=== PATIENT | female | born 1950 | race Caucasian/White ===

== ENCOUNTER 2016-11-12 12:00 | Emergency (ER) | payer MEDICARE, OTHER ==
[2016-11-12 12:18] VITALS: BP 120/81; PULSE 73; RESP 16; TEMP 98.2
--- NOTE | 2016-11-12 13:26 | ED ---
Lower Extremity Injury HPI <Felice Salazar - Last Filed: 11/12/16 14:23> - General Source: patient, RN notes reviewed, old records reviewed Mode of arrival: wheelchair Limitations: no limitations <Jamia Diana - Last Filed: 11/12/16 15:45> - General Chief Complaint: Extremity Injury, Lower Stated Complaint: IHS-knee pain Time Seen by Provider: 11/12/16 12:48 - History of Present Illness Initial Comments: Is a 66-year-old female presents emergency to play right knee pain. 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 Patient poor she stepped on her knee incorrectly and felt a popping sensation. Patient reports the pain is mainly over the posterior knee. 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 Patient reports that her was a previous radiologist here and is requesting to have a ultrasound and x-rays. Patient states the pain is worse with full extension. She reports that she is unable to fully extend. She states the pain is mainly over the back of her knee. Patient denies any recent fever or chills, chest pain, shortness of breath, nausea, vomiting or any other symptoms. (Jamia Diana) - Related Data Previous Rx's Medication Instructions Recorded Ibuprofen [Motrin] 600 mg PO Q6HR PRN #20 tab 11/12/16 Allergies Allergy/AdvReac Type Severity Reaction Status Date / Time No Known Allergies Allergy Verified 11/12/16 14:13 Review of Systems ROS Other: All systems not noted in ROS Statement are negative. <MartinFelice - Last Filed: 11/12/16 14:23> ROS Other: All systems not noted in ROS Statement are negative. <Jamia Diana - Last Filed: 11/12/16 15:45> ROS Statement: Those systems with pertinent positive or pertinent negative responses have been documented in the HPI. Past Medical History Past Medical History: No Reported History History of Any Multi-Drug Resistant Organisms: None Reported Past Surgical History: Appendectomy, Tubal Ligation Additional Past Surgical History / Comment(s): COLONOSCOPY Past Anesthesia/Blood Transfusion Reactions: No Reported Reaction Past Psychological History: No Psychological Hx Reported Smoking Status: Never smoker Past Alcohol Use History: Occasional Past Drug Use History: None Reported - Past Family History Mother Family Medical History: Cancer Additional Family Medical History / Comment(s): Breast Cancer <Jamia Diana - Last Filed: 11/12/16 15:45> General Exam <Felice Salazar - Last Filed: 11/12/16 14:23> Limitations: no limitations General appearance: alert, in no apparent distress Head exam: Present: atraumatic, normocephalic, normal inspection Eye exam: Present: normal appearance, PERRL, EOMI. Absent: scleral icterus, conjunctival injection, periorbital swelling ENT exam: Present: normal exam, mucous membranes moist Neck exam: Present: normal inspection. Absent: tenderness, meningismus, lymphadenopathy Respiratory exam: Present: normal lung sounds bilaterally. Absent: respiratory distress, wheezes, rales, rhonchi, stridor Cardiovascular Exam: Present: regular rate, normal rhythm, normal heart sounds. Absent: systolic murmur, diastolic murmur, rubs, gallop, clicks GI/Abdominal exam: Present: soft, normal bowel sounds. Absent: distended, tenderness, guarding, rebound, rigid Extremities exam: Present: normal inspection, full ROM, normal capillary refill. Absent: tenderness, pedal edema, joint swelling, calf tenderness Left Knee exam: Present: normal inspection ( he can feel), tenderness (Patient has pain and tenderness over the knee.). Absent: full ROM, swelling, abrasion, laceration Lower Leg exam: Present: normal inspection, full ROM Ankle exam: Present: normal inspection, full ROM Foot/Toe exam: Present: normal inspection, full ROM Neurovascular tendon exam: Present: no vascular compromise Gait: observed and normal Back exam: Present: normal inspection Neurological exam: Present: alert, oriented X3, CN II-XII intact Skin exam: Present: warm, dry, intact, normal color. Absent: rash <Jamia Diana - Last Filed: 11/12/16 15:45> - General Exam Comments Initial Comments: [place] 66-year-old female. No acute distress. (Jamia Diana) Course <Felice Salazar - Last Filed: 11/12/16 14:23> <Jamia Diana - Last Filed: 11/12/16 15:45> Vital Signs 11/12/16 11/12/16 12:13 14:59 Temperature 98.2 F 98.2 F Pulse Rate 73 73 Respiratory 16 16 Rate Blood Pressure 120/81 120/81 O2 Sat by Pulse 98 98 Oximetry - Reevaluation(s) Reevaluation #1: 11/12/16 14:23 I did personally evaluate the patient did discuss findings with her. The x- rays and the look unremarkable for acute findings. Ultrasound shows evidence of a popliteal cyst patient clinically does have evidence of tenderness palpation of the lateral aspect of the right knee no anterior or medial tenderness. There is some mild posterior and posterior lateral tenderness. No step-off or crepitation. Patient will be discharged with a knee immobilizer instructions to follow-up with Dr. [facility]. (Felice Salazar) Medical Decision Making <Felice Salazar - Last Filed: 11/12/16 14:23> - Radiology Data Radiology results: report reviewed <Jamia Diana - Last Filed: 11/12/16 15:45> - Medical Decision Making Is a 66-year-old female presents emergency to play right knee pain. 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 Patient poor she stepped on her knee incorrectly and felt a popping sensation. Patient reports the pain is mainly over the posterior knee. 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 Patient reports that her was a previous radiologist here and is requesting to have a ultrasound and x-rays. X-rays negative for any acute process. Doppler ultrasound does show evidence of 27 m fluid flush over the posterior consistent with a first popliteal cyst. Patient was attempting to put knee immobilizer but she reports the pain is too severe. Patient states that she prefers a Luis Alfredo wrap. Patient given an Luis Alfredo wrap and advised to take the knee immobilizer home. She was written for prescription for crutches. She will be following up with her orthopedic physician Dr. Dowd who is currently on-call. Patient will be given Motrin for pain. Patient understands treatment plan will comply. Return parameters were discussed. I also discussed this case with Dr. Salazar and he physically examined the patient as well. (Jamia Diana) - Radiology Data Further exam for DVT. Patient complains of pain in the lateral popliteal fossa small fluid collections noted 1.6 x 0.7 x 1.7 cm. Negative for DVT in the right lower extremity periods popliteal cyst is felt present. X-rays reviewed reviewed negative for any acute process (Jamia Diana) Disposition <MartinFelice - Last Filed: 11/12/16 14:23> Time of Disposition: 14:17 <Jamia Diana - Last Filed: 11/12/16 15:45> Clinical Impression: Popliteal cyst, Knee sprain Disposition: HOME SELF-CARE Condition: Good Instructions: Knee Sprain (ED), Bakers Cyst (ED) Additional Instructions: Remaining in knee immobilizer. Follow-up with orthopedic physician. Return to the emergency department if any alarming signs or symptoms occur. Prescriptions: Ibuprofen [Motrin] 600 mg PO Q6HR PRN #20 tab PRN Reason: Pain Referrals: Neil Collins MD [Primary Care Provider] - 1-2 days Bj Dowd MD [STAFF PHYSICIAN] - 1-2 days
--- NOTE | 2016-11-12 13:38 | XR ---
EXAMINATION TYPE: XR knee complete RT DATE OF EXAM: 11/12/2016 CLINICAL HISTORY: Right knee pain following exercise today. TECHNIQUE: Three views of the right knee are obtained. COMPARISON: None. FINDINGS: There is no acute fracture/dislocation evident in right knee. Mild to moderate narrowing p atellofemoral compartment is present. The overlying soft tissue appears unremarkable. IMPRESSION: There is no acute fracture or dislocation in the right knee.
--- NOTE | 2016-11-12 14:12 | US ---
EXAMINATION TYPE: US venous Doppler duplex LE RT DATE OF EXAM: 11/12/2016 1:56 PM COMPARISON: NONE CLINICAL HISTORY: Pain. Right knee pain during Lucy class today. SIDE PERFORMED: Right TECHNIQUE: The lower extremity deep venous system is examined utilizing real time linear array sonog arlen with graded compression, doppler sonography and color-flow sonography. VESSELS IMAGED: Common Femoral Vein Deep Femoral Vein Greater Saphenous Vein * Femoral Vein Popliteal Vein Small Saphenous Vein * Proximal Calf Veins (* superficial vessels) Right Leg: Negative for DVT. At patient's c/o pain at lateral popliteal fossa a small fluid collecti on is noted = 1.6 x 0.7 x 1.7cm. Grayscale, color doppler, spectral doppler imaging performed of the deep veins of the right lower ext remity. There is normal flow, compressibility, and vascular waveforms in the right lower extremity IMPRESSION: No ultrasound evidence for acute DVT in the right lower extremity. Small popliteal cyst i s felt present.
== END 2016-11-12 15:00 | disposition home or self-care (01) ==
LOC: EC 12:00
DX: S83.91XA Sprain of unspecified site of right knee, initial encounter (principal); M71.21 Synovial cyst of popliteal space [Baker], right knee; X50.0XXA Overexertion from strenuous movement or load, initial encounter; Y92.69 Other specified industrial and construction area as the place of occurrence of the external cause
CPT/HCPCS: 99284; 73562; 93971; L1830 ×2

== ENCOUNTER → 2017-02-25 | Outpatient (CLI) | payer MEDICARE ==
--- NOTE | 2017-02-25 13:55 | MM ---
Reason for exam: screening (asymptomatic). Last mammogram was performed 1 year ago. History: Patient is postmenopausal. Family history of breast cancer in paternal cousin and premenopausal breast cancer in mother at age 48. Benign left mammotome panel of the left breast, September 15, 2007. Took hormonal contraceptives for 1 year 6 months beginning at age 19. Physical Findings: A clinical breast exam by your physician is recommended on an annual basis and results should be correlated with mammographic findings. MG 3D Screening Mammo W/Cad Bilateral CC and MLO view(s) were taken. Prior study comparison: February 23, 2016, bilateral MG 3d screening mammo w/cad. February 16, 2015, bilateral MG screening mammo w CAD. February 02, 2014, bilateral MG screening mammo w CAD. There are scattered fibroglandular densities. Finding: There are few typically benign round calcifications in both breasts. Previous mammotome biopsy in the left breast. There is a chronic nodularity in the left breast outer aspect. There is no dominant lesion. ASSESSMENT: Benign, BI-RAD 2 RECOMMENDATION: Routine screening mammogram of both breasts in 1 year.
== END | disposition home or self-care (01) ==
LOC: RADMAMWWP 07:23
PROVIDERS: ATTEND Obstetrics & Gynecology
DX: Z12.31 Encounter for screening mammogram for malignant neoplasm of breast (principal); Z80.3 Family history of malignant neoplasm of breast
CPT/HCPCS: 77063; G0202

== ENCOUNTER → 2018-03-12 | Outpatient (CLI) | payer MEDICARE ==
--- NOTE | 2018-03-12 14:53 | MM ---
Reason for exam: screening (asymptomatic). Last mammogram was performed 1 year ago. History: Patient is postmenopausal. Family history of breast cancer in paternal cousin and premenopausal breast cancer in mother at age 48. Benign left mammotome panel of the left breast, September 15, 2007. Took hormonal contraceptives for 1 year 6 months beginning at age 19. Physical Findings: A clinical breast exam by your physician is recommended on an annual basis and results should be correlated with mammographic findings. MG 3D Screening Mammo W/Cad Bilateral CC and MLO view(s) were taken. Prior study comparison: February 25, 2017, bilateral MG 3d screening mammo w/cad. February 23, 2016, bilateral MG 3d screening mammo w/cad. The breast tissue is heterogeneously dense. This may lower the sensitivity of mammography. Stable intramammary lymph node lateral left breast. Nodularity posteriorly and medial left CC view corresponds to a looped vessel on 3D images. No significant changes when compared with prior studies. ASSESSMENT: Negative, BI-RAD 1 RECOMMENDATION: Routine screening mammogram of both breasts in 1 year.
== END | disposition home or self-care (01) ==
LOC: RADMAMWWP 06:56
PROVIDERS: ATTEND Obstetrics & Gynecology
DX: Z12.31 Encounter for screening mammogram for malignant neoplasm of breast (principal)
CPT/HCPCS: 77063; 77067

== ENCOUNTER → 2019-03-23 | Outpatient (CLI) | payer MEDICARE ==
--- NOTE | 2019-03-24 10:48 | MM ---
Reason for exam: screening (asymptomatic). Last mammogram was performed 1 year ago. History: Patient is postmenopausal. Family history of breast cancer in paternal cousin and premenopausal breast cancer in mother at age 48. Benign left mammotome panel of the left breast, September 15, 2007. Took hormonal contraceptives for 1 year 6 months beginning at age 19. Physical Findings: A clinical breast exam by your physician is recommended on an annual basis and results should be correlated with mammographic findings. MG 3D Screening Mammo W/Cad Bilateral CC and MLO view(s) were taken. Prior study comparison: March 12, 2018, bilateral MG 3d screening mammo w/cad. February 25, 2017, bilateral MG 3d screening mammo w/cad. The breast tissue is heterogeneously dense. This may lower the sensitivity of mammography. No suspicious abnormality. Left intramammary lymph nodes and benign calcification. Left biopsy marker noted. Few benign appearing right calcifications. ASSESSMENT: Benign, BI-RAD 2 RECOMMENDATION: Routine screening mammogram of both breasts in 1 year.
== END | disposition home or self-care (01) ==
LOC: RADMAMWWP 07:54
PROVIDERS: ATTEND Obstetrics & Gynecology
DX: Z12.31 Encounter for screening mammogram for malignant neoplasm of breast (principal)
CPT/HCPCS: 77063; 77067

== ENCOUNTER → 2019-04-28 | Outpatient (CLI) | payer MEDICARE ==
--- NOTE | 2019-04-28 09:33 | US ---
EXAMINATION TYPE: US abdomen complete DATE OF EXAM: 04/28/2019 COMPARISON: Ultrasound May 28, 2014 CLINICAL HISTORY: 5.0 endometrial hyperplasia, M54.9 back pain. History of renal cell cancer. EXAM MEASUREMENTS: Liver Length: 13.8 cm Gallbladder Wall: 0.2 cm CBD: 0.3 cm Spleen: 8.3 cm Right Kidney: 10.9 x 3.8 x 5.2 cm Left Kidney: 10.8 x 4.4 x 4.7 cm Pancreas: wnl Liver: homogeneous Gallbladder: wnl Evidence for sonographic Dowd's sign: no CBD: wnl Spleen: wnl Right Kidney: No hydronephrosis or masses seen Left Kidney: No hydronephrosis or masses seen Upper IVC: wnl Abd Aorta: prominent iliacs measuring 1.4 and 1.5cm The visualized liver is homogenous. The intrahepatic portion of the IVC and proximal abdominal aorta are within normal limits. There is no evidence of shadowing mobile cholelithiasis. Common bile shari t is unremarkable. The visualized portions of the pancreas are homogenous. The spleen is unremarkab le. Kidneys are symmetric and free of hydronephrosis. No renal lesions are seen on images saved. IMPRESSION: No concerning renal mass or hydronephrosis seen bilaterally. No significant change from p rior.
--- NOTE | 2019-04-28 09:35 | US ---
EXAMINATION TYPE: US transvaginal DATE OF EXAM: 04/28/2019 COMPARISON: US May 28, 2014 CLINICAL HISTORY: 5.0 endometrial hyperplasia, M54.9 back pain. TECHNIQUE: Transvaginal (TV). Transabdominal sonographic images of the pelvis were acquired. Trans vaginal sonographic images were medically necessary to better assess the following anatomy: Date of LMP: post menopausal patient EXAM MEASUREMENTS: Uterus: 6.9 x 3.2 x 4.7 cm Endometrial Stripe: 2mm Right Ovary: not visualized due to atrophy/peristalsing bowel Left Ovary: not visualized due to atrophy/peristalsing bowel 1. Uterus: peripheral calcifications noted 2. Endometrium: small amount of ff in endo measuring 2mm 3. Right Ovary: not visualized due to atrophy/peristalsing bowel 4. Left Ovary: not visualized due to atrophy/peristalsing bowel 5. Bilateral Adnexa: wnl 6. Posterior cul-de-sac: wnl Heterogeneous uterus redemonstrated. Endometrial stripe remains within normal limits without signific ant change from prior. Trace fluid noted in the endometrial canal lower uterine segment. Neither ovary identified. No suspicious adnexal masses. IMPRESSION: Endometrial stripe remains within normal limits for a postmenopausal female. No significa nt change from prior.
== END | disposition home or self-care (01) ==
LOC: RADUSWWP 07:02
PROVIDERS: ATTEND Obstetrics & Gynecology
DX: N85.00 Endometrial hyperplasia, unspecified (principal); Z78.0 Asymptomatic menopausal state; M54.9 Dorsalgia, unspecified
CPT/HCPCS: 76700; 76830

== ENCOUNTER → 2020-05-13 | Outpatient (CLI) | payer MEDICARE ==
--- NOTE | 2020-05-13 14:34 | MM ---
Reason for exam: screening (asymptomatic). Last mammogram was performed 1 year and 2 months ago. History: Patient is postmenopausal. Family history of breast cancer in paternal cousin and premenopausal breast cancer in mother at age 48. Benign left mammotome panel of the left breast, September 15, 2007. Took hormonal contraceptives for 1 year 6 months beginning at age 19. Physical Findings: A clinical breast exam by your physician is recommended on an annual basis and results should be correlated with mammographic findings. MG 3D Screening Mammo W/Cad Bilateral CC and MLO view(s) were taken. Prior study comparison: March 23, 2019, bilateral MG 3d screening mammo w/cad. March 12, 2018, bilateral MG 3d screening mammo w/cad. The breast tissue is heterogeneously dense. This may lower the sensitivity of mammography. There is chronic nodularity in the left breast. No significant changes when compared with prior studies. ASSESSMENT: Benign, BI-RAD 2 RECOMMENDATION: Routine screening mammogram of both breasts in 1 year.
== END | disposition home or self-care (01) ==
LOC: RADMAMWWP 13:32
PROVIDERS: ATTEND Obstetrics & Gynecology
DX: Z12.31 Encounter for screening mammogram for malignant neoplasm of breast (principal)
CPT/HCPCS: 77063; 77067

== ENCOUNTER → 2021-05-15 | Outpatient (CLI) | payer MEDICARE ==
--- NOTE | 2021-05-15 09:26 | MM ---
Reason for exam: screening (asymptomatic). Last mammogram was performed 1 year ago. History: Patient is postmenopausal. Family history of breast cancer in paternal cousin and premenopausal breast cancer in mother at age 48. Benign left mammotome panel of the left breast, September 15, 2007. Took hormonal contraceptives for 1 year 6 months beginning at age 19. Physical Findings: A clinical breast exam by your physician is recommended on an annual basis and results should be correlated with mammographic findings. MG 3D Screening Mammo W/Cad Bilateral CC and MLO view(s) were taken. Prior study comparison: May 13, 2020, bilateral MG 3d screening mammo w/cad. March 23, 2019, bilateral MG 3d screening mammo w/cad. There are scattered fibroglandular densities. There are benign appearing round calcifications bilaterally. There is no discrete abnormality. ASSESSMENT: Benign, BI-RAD 2 RECOMMENDATION: Routine screening mammogram of both breasts in 1 year.
== END | disposition home or self-care (01) ==
LOC: RADMAMWWP 07:17
PROVIDERS: ATTEND Obstetrics & Gynecology
DX: Z12.31 Encounter for screening mammogram for malignant neoplasm of breast (principal)
CPT/HCPCS: 77063; 77067

== ENCOUNTER → 2021-05-17 | Outpatient (CLI) | payer MEDICARE ==
--- NOTE | 2021-05-17 19:59 | BD ---
EXAMINATION TYPE: Axial Bone Density DATE OF EXAM: 05/17/2021 COMPARISON: 2014 CLINICAL HISTORY: Postmenopausal screening Height: 65.5 Weight: 167.7 FRAX RISK QUESTIONS: Alcohol (3 or more units per day): no Family History (Parent hip fracture): no Glucocorticoids (More than 3mos): no (Ex: prednisone, prednisolone, methylprednisolone, dexamethasone, and hydrocortisone). History of Fracture in Adulthood: no Secondary Osteoporosis: 1. Type 1 Diabetes: no 2. Hyperthyroidism: no 3. Menopause before 45: no 4. Malnutrition: no 5. Chronic liver disease: no Rheumatoid Arthritis: no Current Tobacco Use: no RISK FACTORS HISTORY OF: History of Wrist Fracture: yes/ right When: age 11 Surgery to Spine/Hip(right/left)/Wrist (right/left): no Family History of Osteoporosis: no Active: yes Diet low in dairy products/other sources of calcium: yes Postmenopausal woman: yes Lost more than 2 inches in height since high school: no MEDICATIONS: none Additional History: EXAM MEASUREMENTS: Bone mineral densitometry was performed using the [employer] System. Bone mineral density as measured about the Lumbar spine is: ----- L1-L4(G/cm2): 1.451 T Score Values are as follows: ----- L2: 2.3 ----- L3: 3.0 ----- L4: 2.5 ----- L1-L4: 2.3 Bone mineral density has: decreased -4.1 % since study of: 05.28.2014 Bone mineral density about the R hip (g/cm2): 0.979 Bone mineral density about the L hip (g/cm2): 0.971 T Score values are as follows: -----R Neck: -0.4 -----L Neck: -0.5 -----R Total: 0.7 -----L Total: 0.6 Bone mineral density has: decreased -5.8 % since study of: 05.28.2014 IMPRESSION: Normal (Values between +1 and -1 indicate normal bone mass). Consider repeating this study in 5 year s or sooner if there is some new clinical indication. NOTE: T-SCORE=SD OF THE YOUNG ADULT MEAN.
== END | disposition home or self-care (01) ==
LOC: RADBDWWP 08:26
PROVIDERS: ATTEND Obstetrics & Gynecology
DX: N95.1 Menopausal and female climacteric states (principal)
CPT/HCPCS: 77080

== ENCOUNTER → 2022-05-16 | Outpatient (CLI) | payer MEDICARE ==
--- NOTE | 2022-05-16 17:38 | MM ---
Reason for Exam: Screening (asymptomatic). Last screening mammogram was performed 12 month(s) ago. Patient History: Menarche at age 12. First Full-Term at age 25. Postmenopausal. Patient has history of breast feeding. Hormonal Contraceptives, starting at age 19 for 1 year, 6 months. 09/15/2007, Benign Core Biopsy on the left side. Paternal cousin had breast cancer. Mother had breast cancer, age 48. Risk Values: Magali 5 year model risk: 4.1%. NCI Lifetime model risk: 10.4%. Prior Study Comparison: 03/23/2019 Bilateral Screening Mammogram, [facility]. 05/13/2020 Bilateral Screening Mammogram, [facility]. 05/15/2021 Bilateral Screening Mammogram, [facility]. Tissue Density: There are scattered fibroglandular densities. Findings: Analyzed By CAD. Pattern appears symmetrical and stable. Benign calcification is within the left breast. Some benign punctate calcifications within the right breast. Markers in the left breast No suspicious groups of microcalcifications, spiculated or lobular masses, architectural distortion or other secondary signs of malignancy are mammographically apparent. Overall Assessment: Benign, BI-RAD 2 Management: Screening Mammogram of both breasts in 1 year. A negative mammogram report should not preclude additional follow up of suspicious palpable abnormalities. Patient should continue monthly self breast exam. A clinical breast exam by your physician is recommended on an annual basis and results should be correlated with mammographic findings. Electronically signed and approved by: Rajesh Wells D.O. Radiologis
== END | disposition home or self-care (01) ==
LOC: RADMAMWWP 15:12
PROVIDERS: ATTEND Obstetrics & Gynecology
DX: Z12.31 Encounter for screening mammogram for malignant neoplasm of breast (principal); Z80.3 Family history of malignant neoplasm of breast; Z78.0 Asymptomatic menopausal state
CPT/HCPCS: 77063; 77067